=== PATIENT | male | born 1965 | race African-American/Black ===

== ENCOUNTER 2023-11-02 13:33 | Inpatient (IN) | payer MEDICAID, OTHER ==
[~2023-11-02] VITALS: Ht 185.4 cm; Wt 86.6 kg
[2023-11-02 13:36] VITALS: O2SAT 97
[2023-11-02] MEDS: SODIUM CHLORIDE 0.9% 1000ML BAG (SEPSIS BOLUS) IV ONE (15:06)
[2023-11-02 15:27] LABS: CLARITY URINE CLEAR (CLEAR); COLOR URINE YELLOW (YELLOW); GLUCOSE URINE 2+ (NEGATIVE); KETONES URINE NEGATIVE (NEGATIVE); LEUKOCYTE ESTERASE URINE NEGATIVE (NEGATIVE); NITRITE URINE NEGATIVE (NEGATIVE); OCCULT BLOOD URINE NEGATIVE (NEGATIVE); PH URINE 6.5 (4.5-8.0); PROTEIN URINE NEGATIVE (NEGATIVE); SPECIFIC GRAVITY URINE 1.009 (1.005-1.030)
[2023-11-02 15:47] LABS: BACTERIA URINE NONE SEEN; RBC URINE 0-2 /hpf (0-2); SQUAMOUS EPITHELIAL CELL URINE 1+ /lpf (RARE/1+)
[2023-11-02] MEDS: CEFTRIAXONE 1GM/50ML 50 ML IV ONE (16:10)
[2023-11-02] MEDS: AZITHROMYCIN 500MG/250ML 250 ML IV ONE (16:10)
[2023-11-02 17:50] LABS: BASOPHILS % 1.7 % (0.0-2.0); DIFFERENTIAL COMMENT 0; EOSINOPHILS % 4.9 % (0.0-5.0); HEMATOCRIT. 37.3 % (42.0-52.0); HEMOGLOBIN. 12.3 g/dL (14.0-18.0); LYMPHOCYTES % 28.4 % (20.0-50.0); MEAN CORPUSCULAR HEMOGLOBIN 26.1 pg (28.0-32.0); MEAN CORPUSCULAR HGB CONC 32.8 g/dL (31.0-37.0); MEAN CORPUSCULAR VOLUME 79.3 fL (80.0-94.0); MEAN PLATELET VOLUME 9.6 fl (7.4-10.4); MONOCYTES % 12.7 % (2.0-8.0); NEUTROPHILS % 52.3 % (40.0-76.0); PLATELET 186 x1000/uL (130-400); RED CELL DISTRIBUTION WIDTH 18.4 % (11.6-14.6); WHITE BLOOD COUNT 4.8 x1000/uL (4.5-11.0)
[2023-11-02 17:57] LABS: D-DIMER 4.38 mg/L FEU (<0.50); INR 1.3; PARTIAL THROMBOPLASTIN TIME 34.2 sec (23.4-31.0); PROTHROMBIN TIME 13.9 sec (9.6-11.0)
[2023-11-02 18:02] LABS: ALANINE AMINOTRANSFERASE 24 IU/L (10-49); ALBUMIN 3.4 g/dL (3.2-4.8); ASPARTATE AMINOTRANSFERASE 23 IU/L (<34); BILIRUBIN TOTAL 0.5 mg/dL (0.1-1.0); CARBON DIOXIDE 29 mEq/L (21-32); CHLORIDE 101 mEq/L (98-107); GLUCOSE 119 mg/dL (70-105); POTASSIUM 3.7 mEq/L (3.5-5.1); PROTEIN TOTAL 6.5 g/dL (6.0-8.3); SODIUM 133 mEq/L (136-145); TROPONIN I HIGH SENSITIVITY 34 ng/L (3.0-53); UREA NITROGEN BLOOD 18 mg/dL (9-23)
[2023-11-02] MEDS: SODIUM CHLORIDE 0.9% 1,000 ML IV ONE (18:22)
[2023-11-02] MEDS: ENOXAPARIN 100MG/ML SYR SUBCUT ONE (19:22)
[2023-11-02] MEDS ORDERED: IPRATROPIUM/ALBUTEROL 0.5-3(2.5)MG/3ML NEB HHN PRN (22:15)
[2023-11-02] MEDS ORDERED: CLONIDINE 0.1MG TABLET PO PRN (22:15)
[2023-11-02] MEDS ORDERED: ACETAMINOPHEN 325MG TABLET PO PRN (22:15)
[2023-11-02] MEDS ORDERED: IOHEXOL-350 100 ML BOTTLE ONE (23:26)
[2023-11-03 02:09] VITALS: BP 98/65; PULSE 92; RESP 19; TEMP 97.8
[2023-11-03] MEDS ORDERED: DOXYCYCLINE 100MG/100ML 100 ML IV SCH (03:00)
[2023-11-03] MEDS: ENOXAPARIN 100MG/ML SYR SUBCUT SCH (06:00)
[2023-11-03 07:25] LABS: CREATINE KINASE MB FRACTION 0.5 ng/mL (0.5-3.6)
[2023-11-03 07:27] LABS: ALANINE AMINOTRANSFERASE 22 IU/L (10-49); ALBUMIN 3.2 g/dL (3.2-4.8); ASPARTATE AMINOTRANSFERASE 21 IU/L (<34); BILIRUBIN TOTAL 0.5 mg/dL (0.1-1.0); CALCIUM 8.2 mg/dL (8.7-10.4); CARBON DIOXIDE 25 mEq/L (21-32); CHLORIDE 106 mEq/L (98-107); CHOLESTEROL 118 mg/dL (<200); CREATININE 0.9 mg/dL (0.6-1.3); FERRITIN 216 ng/mL (22-322); GLUCOSE 80 mg/dL (70-105); HDL CHOLESTEROL 35 mg/dL (>55); IRON 63 ug/dL (65-175); LDL CHOLESTEROL 78 mg/dL (5-100); POTASSIUM 4.3 mEq/L (3.5-5.1); PROTEIN TOTAL 6.3 g/dL (6.0-8.3); SODIUM 137 mEq/L (136-145); T4 FREE 0.83 ng/dL (0.89-1.76); THYROID STIMULATING HORMONE 1.76 uIU/mL (0.55-4.78); TOTAL IRON BINDING CAPACITY 302 ug/dl (250-425); TRIGLYCERIDE 88 mg/dL (0-150); UREA NITROGEN BLOOD 17 mg/dL (9-23); VITAMIN B12 SERUM 258 pg/mL (211-911)
[2023-11-03 07:34] LABS: HEMATOCRIT. 36.8 % (42.0-52.0); HEMOGLOBIN. 12.5 g/dL (14.0-18.0); MEAN CORPUSCULAR HEMOGLOBIN 26.4 pg (28.0-32.0); MEAN CORPUSCULAR HGB CONC 33.9 g/dL (31.0-37.0); MEAN CORPUSCULAR VOLUME 77.6 fL (80.0-94.0); MEAN PLATELET VOLUME 10.2 fl (7.4-10.4); PLATELET 185 x1000/uL (130-400); RED BLOOD CELL COUNT 4.74 mill/uL (4.7-6.1); WHITE BLOOD COUNT 4.6 x1000/uL (4.5-11.0)
[2023-11-03 07:39] LABS: DIFFERENTIAL COMMENT 1
[2023-11-03 08:00] VITALS: BP 104/72; PULSE 82; RESP 18; TEMP 98.6
[2023-11-03] MEDS: FUROSEMIDE 40MG/4ML VIAL IV SCH (09:41)
[2023-11-03] MEDS: PANTOPRAZOLE SODIUM 40 MG/VIAL IV SCH (09:41)
[2023-11-03] MEDS: SPIRONOLACTONE 25MG TABLET PO SCH (09:42)
[2023-11-03] MEDS ORDERED: CEFTRIAXONE 1GM/50ML 50 ML IV SCH (15:00)
[2023-11-03 15:34] LABS: MICROCYTOSIS 1+; PLATELET ESTIMATE NORMAL
[2023-11-03] MEDS ORDERED: AZITHROMYCIN 250 MG in DEXT 5% WATER 250 ML IV SCH (16:00)
[2023-11-03] MEDS ORDERED: ATORVASTATIN CALCIUM 40MG TABLET PO SCH (21:00)
== END 2023-11-03 11:27 | disposition left against medical advice (07) | DRG 134 ==
LOC: ER 13:33 → EDBEDREQ 14:05 → 8WST 18:46 → EDBEDREQTM 18:49 → EDBEDREQ 18:49 → EDBEDREQSVC 18:49 → EDBEDREQ 18:50
PROVIDERS: ADMIT Internal Medicine; ATTEND Internal Medicine
DX: I26.99 Other pulmonary embolism without acute cor pulmonale (principal); J18.9 Pneumonia, unspecified organism; I50.9 Heart failure, unspecified; D50.9 Iron deficiency anemia, unspecified; Z20.822 Contact with and (suspected) exposure to COVID-19; I25.10 Atherosclerotic heart disease of native coronary artery without angina pectoris; Z53.29 Procedure and treatment not carried out because of patient's decision for other reasons; I69.328 Other speech and language deficits following cerebral infarction; Z79.899 Other long term (current) drug therapy; Z95.1 Presence of aortocoronary bypass graft; Z95.810 Presence of automatic (implantable) cardiac defibrillator; J90 Pleural effusion, not elsewhere classified
CPT/HCPCS: 36415; 71045; 71275; 80053; 80061; 81003; 82550; 82553; 82607; 82728; 82746; 83540; 83550; 83605; 83735; 83880; 84145; 84439; 84443; 84484; 85025; 85379; 87426; 93005; 93306; 93880; 97162; 97166; 97530; 99285; C9113; J0456; J0696; J1650; J1940; J3490; J7030; Q9967